=== PATIENT | female | born 1985 | race Caucasian/White ===

== ENCOUNTER 2020-08-01 13:14 | Outpatient (REF) | payer OTHER, SELFPAY ==
--- NOTE | 2020-08-01 13:22 | XR_ITS ---
EXAMINATION: XR LUMBOSACRAL SPINE CLINICAL INFORMATION: Low back pain. COMPARISON: None TECHNIQUE: Three views of the lumbosacral spine. FINDINGS: There is normal lumbar lordosis. The vertebral heights, alignment disc heights are normal.. No visible acute fracture, dislocation or lytic process seen. Incidental note of an IUD in the pelvis is noted. XR/XR lumbar spine 2-3V IMPRESSION: Mild ventral spondylosis L4-L5 the skull. No visible acute fracture or dislocation seen.
== END 2020-08-01 13:15 | disposition home or self-care (01) ==
LOC: HO.HMGCX 13:14
PROVIDERS: PCP Internal Medicine; Visit Provider Internal Medicine
DX: M54.5 Low back pain (principal)
CPT/HCPCS: 72100

== ENCOUNTER 2021-02-23 11:05 | Outpatient (REF) | payer OTHER, SELFPAY ==
[2021-02-23 13:59] LABS: Glucose Urine UA NEG (NEG); Leukocyte Esterase Urine NEG (NEG); Nitrite Urine NEG (NEG); Specific Gravity - Urine >= 1.030 (1.005-1.025); Urine Blood 3+ (NEG); Urine Ketones NEG (NEG); Urine Protein NEG (NEG-TRACE)
[2021-02-23 13:59] LABS: Hematocrit 41.2 % (37-47); Hemoglobin 13.2 g/dl (12.0-16.0); Mean Corpuscular Hemoglobin 27.2 pg (27.0-33.0); Mean Corpuscular Volume 84.9 fL (80-98); Platelet Count 338 X10*3/uL (160-400); Red Blood Count 4.85 X10*6/uL (4.20-5.50); Red Cell Distribution Width 14.8 % (11.0-16.0); White Blood Count 9.4 X10*3/uL (4.8-10.8)
[2021-02-23 14:04] LABS: Appearance Urine CLOUDY; Color Urine YELLOW
[2021-02-23 14:11] LABS: Alanine Aminotransferase 14 U/L (0-31); Albumin Level 4.2 g/dL (3.5-5.0); Alkaline Phosphatase 86 U/L (39-117); Anion Gap 13 (12-20); Aspartate Amino Transferase 16 U/L (5-31); Bilirubin Total 0.3 mg/dL (0.0-1.0); Blood Urea Nitrogen 11 mg/dL (9-16); Calcium 9.2 mg/dL (8.4-10.2); Carbon Dioxide 23 mmol/L (22-29); Chloride 110 mmol/L (96-108); Cholesterol 184 mg/dL; Estimated Glomerular Filt Rate > 60; Glucose Fasting 83 mg/dL (60-99); HDL Cholesterol 45 mg/dL; LDL Cholesterol Calculated 129 mg/dl; Potassium 4.5 mmol/L (3.3-5.1); Sodium 141 mmol/L (135-145); Total Protein 6.9 g/dL (6.5-8.0); Triglycerides 53 mg/dL
[2021-02-23 14:27] LABS: Amorphous Sediment Urine 4+ /LPF; RBC Urine 0 /HPF (0); Squamous Epithelial Cell Urine 2+ /LPF; WBC Urine 0 /HPF (0-4)
== END 2021-02-23 11:06 | disposition home or self-care (01) ==
LOC: HO.HMGCLDS 11:05
PROVIDERS: PCP Internal Medicine; Visit Provider Internal Medicine
DX: Z00.00 Encounter for general adult medical examination without abnormal findings (principal)
CPT/HCPCS: 36415; 80053; 80061; 81001; 85027

== ENCOUNTER 2021-03-15 13:44 | Outpatient (REF) | payer OTHER, SELFPAY ==
[2021-03-15 16:23] LABS: Glucose Urine UA NEG (NEG); Leukocyte Esterase Urine NEG (NEG); Nitrite Urine NEG (NEG); Specific Gravity - Urine 1.025 (1.005-1.025); UACC Culture Trigger NO; Urine Blood TRACE (NEG); Urine Ketones 5 MG/DL (NEG); Urine Protein NEG (NEG-TRACE)
[2021-03-15 16:24] LABS: Appearance Urine HAZY; Color Urine YELLOW
[2021-03-15 16:32] LABS: Bacteria Urine 3+ /LPF; RBC Urine 0 /HPF (0); Squamous Epithelial Cell Urine 3+ /LPF; WBC Urine 0-2 /HPF (0-4)
== END 2021-03-15 13:45 | disposition home or self-care (01) ==
LOC: HO.HMGCLDS 13:44
PROVIDERS: PCP Internal Medicine; Visit Provider Internal Medicine
DX: Z00.00 Encounter for general adult medical examination without abnormal findings (principal); R31.9 Hematuria, unspecified
CPT/HCPCS: 81001

== ENCOUNTER 2021-05-22 15:00 | Outpatient (RCR) | payer OTHER, SELFPAY ==
--- NOTE | 2021-02-23 10:58 | MHC.PT.EP ---
[facility] [place] Office [place] Office [place] [facility] [address] Brody Virgen [address] [phone] F: [phone] F: [phone] F: [phone] F: [phone] Physical Therapy Plan of Care Date of Evaluation: Date of Surgery: t Diagnosis: Sciatice, Low back pain Assessment: Patient is a 35 year old R handed female who presents with s/s consistent with low back pain, sciatica. 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 She use to work where she was lifting often and it always seemed to worsen her back pain Patient past medical history is otherwise unremarkable. Current impairments include pain, ROM, strength, activity tolerance and functional mobility. Functional limitations include decreased ability to walk, stand, bend, lift, sleep, transfer, negotiate stairs, and perform weight bearing activities.. Patient is motivated with good rehab potential. Skilled PT will address impairments and functional limitations in order to achieve goals. Frequency and Duration: The patient will be seen 2x/week for 5 weeks Short Term Goals: I with HEP - 2 weeks Able to walk 20 minutes with increased pain - 3 weeks Demo proper floor to waist lift mechanics - 3 weeks Penitentiary Goals: eliminate piriformis tenderness - 5 weeks restore PLOF of 2/10 max pain - 5 weeks Treatment Plan: Modalities to reduce pain, spasms and effusion. Manual therapy to restore motion and function. Therapeutic exercise to improve strength and flexibility. Neuromuscular re-education for posture and balance. Therapeutic activities to return to functional activities of daily living. Electronically signed by: Hai Ojeda, PT Please sign and return to therapist. Thank you for your referral.
--- NOTE | 2021-07-03 13:53 | MHC.PT.DC ---
[facility] [place] Office [place] Office [place] Office [address] Brody Virgen [address] [phone] F: [phone] F: [phone] F: [phone] F: [phone] Physical Therapy Discharge Report Diagnosis: Sciatice, Low back pain Date of Surgery: t Date of Evaluation: 02/23/21 Date of Discharge: 05/19/21 Treatments to Date: 10 Cancellations to Date: 0 No Shows to Date: 0 Discharge Status: Independent with HEP Discharge Summary: Pt with good progress in skilled PT on impairments and functional limitations. She is I with HEP and appropriate to d/c to HEP at this time. Electronically signed by: Hai Ojeda, PT Please sign and return to therapist. Thank you for your referral.
== END 2021-07-03 13:54 | disposition home or self-care (01) ==
LOC: HO.PTCHIC 15:00
PROVIDERS: PCP Internal Medicine; Visit Provider Internal Medicine
DX: M54.30 Sciatica, unspecified side (principal)
CPT/HCPCS: 97014; 97110; 97140; 97161